=== PATIENT | female | born 1985 | race Two or more races ===

== ENCOUNTER 2017-12-27 11:56 | Outpatient (CLI) | payer OTHER | END 2017-12-27 12:32 | disposition home or self-care (01) | LOC: RAD 501 11:56 | DX: I10 Essential (primary) hypertension (principal) ==

== ENCOUNTER 2018-02-26 09:07 | Day surgery (SDC) | payer OTHER ==
[2018-02-26] MEDS ORDERED: PERCOCET 5-3251 EACH PO (15:19)
== END 2018-02-26 17:50 | disposition home or self-care (01) ==
LOC: CIR.AMB 09:07
DX: Z30.2 Encounter for sterilization (principal); Z64.1 Problems related to multiparity

== ENCOUNTER 2019-09-05 15:30 | Outpatient (CLI) | payer OTHER ==
[~2019-09-05 15:30] MED LIST: PERCOCET 5-3251 EACH PO
== END 2019-09-06 14:48 | disposition home or self-care (01) ==
LOC: EKG 15:30
DX: Z01.818 Encounter for other preprocedural examination (principal)

== ENCOUNTER 2021-01-20 20:55 | Emergency (ER) | payer OTHER ==
[~2021-01-20] VITALS: Ht 167.6 cm; Wt 85.7 kg
[2021-01-20] MEDS ORDERED: IRON325 MG PO (23:26)
[2021-01-20] MEDS ORDERED: COLACE100 MG PO (23:26)
[2021-01-20] MEDS ORDERED: BUTALBIT-ACETA1 EACH PO (23:26)
== END 2021-01-20 23:41 | disposition home or self-care (01) ==
LOC: ER 20:55
DX: G44.209 Tension-type headache, unspecified, not intractable (principal); G43.909 Migraine, unspecified, not intractable, without status migrainosus